=== PATIENT | female | born 1985 | race Two or more races ===

== ENCOUNTER 2021-10-11 18:13 | Emergency (ER) | payer SELFPAY ==
[~2021-10-11] VITALS: Ht 160 cm; Wt 66.0 kg
[2021-10-11 19:15] VITALS: BP 141/94
--- NOTE | 2021-10-11 19:43 | PHYS DOC ---
Past Medical History Past Surgical History: No Surgical History Adult General Chief Complaint Chief Complaint: NEURO SYMPTOMS/DEFICITS HPI HPI Patient is a 35 year old female presenting to the emergency department for evaluation of right arm numbness tingling and pain that has been going on for the past 2 weeks. Patient says that she feels the tingling and numbness in her upper arm and forearm and then it goes into all digits of her hand as well. She said that it was initially coming and going but since Monday it has been constant. 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 She denies having any medical problems or taking any medications on a regular basis. She is [place]- speaking only but brought her cousin to translate. Recommended [employer] language line sign language interpreter but she refused noting that she rather have her cousin interpret. She is in no acute distress with normal vital signs other than initial hypertension noted. Review of Systems Review of Systems Constitutional: Denies fever or chills [] Eyes: Denies change in visual acuity, redness, or eye pain [] HENT: Denies nasal congestion or sore throat [] Respiratory: Denies cough or shortness of breath [] Cardiovascular: No additional information not addressed in HPI [] GI: Denies abdominal pain, nausea, vomiting, bloody stools or diarrhea [] : Denies dysuria or hematuria [] Musculoskeletal: Denies back pain or joint pain [] Integument: Denies rash or skin lesions [] Neurologic: Denies headache, focal weakness. Positive right arm numbness and tingling. All other systems were reviewed and found to be within normal limits, except as documented in this note. Current Medications Current Medications Current Medications Medications (Trade) Dose Ordered Sig/[facility] Start Time Stop Time Status Last Admin Dose Admin Dexamethasone Sodium Phosphate (Decadron) 8 mg 1X ONCE 10/11/21 22:30 10/11/21 22:31 DC 10/11/21 22:14 8 MG Ketorolac Tromethamine (Toradol 15mg Vial) 15 mg 1X ONCE 10/11/21 22:30 10/11/21 22:31 DC 10/11/21 22:15 15 MG Allergies Allergies Allergies Coded Allergies Type Severity Reaction Last Updated Verified No Known Drug Allergies 10/11/21 No Physical Exam Physical Exam Constitutional: Well developed, well nourished, no acute distress, non-toxic appearance. [] HENT: Normocephalic, atraumatic, bilateral external ears normal, oropharynx moist, no oral exudates, nose normal. [] Eyes: PERRLA, EOMI, conjunctiva normal, no discharge. [] Neck: Normal range of motion, no tenderness, supple, no stridor. [] Cardiovascular:Heart rate regular rhythm, no murmur [] Lungs & Thorax: Bilateral breath sounds clear to auscultation [] Abdomen: Bowel sounds normal, soft, no tenderness, no masses, no pulsatile masses. [] Skin: Warm, dry, no erythema, no rash. [] Back: No tenderness, no CVA tenderness. [] Extremities: No tenderness, no cyanosis, no clubbing, ROM intact, no edema. 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 Subjective decrease sensation to palpation in the right forearm and all digits of her fingers on the volar and dorsal surface. Current Patient Data Vital Signs Vital Signs Date Time Temp Pulse Resp B/P (MAP) Pulse Ox O2 Delivery O2 Flow Rate FiO2 10/11/21 19:15 98.5 73 16 141/94 (110) 99 Room Air 98.5 Lab Values Laboratory Tests Test 10/11/21 21:41 10/11/21 22:30 10/11/21 22:33 White Blood Count 7.6 x10^3/uL (4.0-11.0) Red Blood Count 4.50 x10^6/uL (3.50-5.40) Hemoglobin 14.2 g/dL (12.0-15.5) Hematocrit 40.6 % (36.0-47.0) Mean Corpuscular Volume 90 fL (79-100) Mean Corpuscular Hemoglobin 32 pg (25-35) Mean Corpuscular Hemoglobin Concent 35 g/dL (31-37) Red Cell Distribution Width 12.5 % (11.5-14.5) Platelet Count 239 x10^3/uL (140-400) Neutrophils (%) (Auto) 60 % (31-73) Lymphocytes (%) (Auto) 29 % (24-48) Monocytes (%) (Auto) 6 % (0-9) Eosinophils (%) (Auto) 3 % (0-3) Basophils (%) (Auto) 1 % (0-3) Neutrophils # (Auto) 4.6 x10^3/uL (1.8-7.7) Lymphocytes # (Auto) 2.2 x10^3/uL (1.0-4.8) Monocytes # (Auto) 0.5 x10^3/uL (0.0-1.1) Eosinophils # (Auto) 0.3 x10^3/uL (0.0-0.7) Basophils # (Auto) 0.1 x10^3/uL (0.0-0.2) Sodium Level 140 mmol/L (136-145) Potassium Level 3.7 mmol/L (3.5-5.1) Chloride Level 106 mmol/L (98-107) Carbon Dioxide Level 28 mmol/L (21-32) Anion Gap 6 (6-14) Blood Urea Nitrogen 17 mg/dL (7-20) Creatinine 0.6 mg/dL (0.6-1.0) Estimated GFR (Cockcroft-Gault) 114.4 BUN/Creatinine Ratio 28 (6-20) H Glucose Level 123 mg/dL (70-99) H Calcium Level 9.3 mg/dL (8.5-10.1) Total Bilirubin 0.3 mg/dL (0.2-1.0) Aspartate Amino Transferase (AST) 19 U/L (15-37) Alanine Aminotransferase (ALT) 32 U/L (14-59) Alkaline Phosphatase 60 U/L (46-116) Total Protein 7.5 g/dL (6.4-8.2) Albumin 4.2 g/dL (3.4-5.0) Albumin/Globulin Ratio 1.3 (1.0-1.7) Thyroid Stimulating Hormone (TSH) 2.588 uIU/mL (0.358-3.74) Urine Collection Type Unknown Urine Color (Auto) Light yellow Urine Turbidity Hazy Urine pH (Auto) 6.5 (<5.0-8.0) Urine Specific Success 1.027 (1.000-1.030) Urine Protein (Auto) Negative mg/dL (Negative) Urine Glucose (Auto)(UA) Negative mg/dL (Negative) Urine Ketones (Auto) Negative mg/dL (Negative) Urine Blood (Auto) Negative (Negative) Urine Nitrite Negative (Negative) Urine Bilirubin (Auto) Negative (Negative) Urine Urobilinogen (Auto) Normal mg/dL (Normal) Urine Leukocyte Esterase (Auto) Negative (Negative) Urine RBC Occ /HPF (0-2) Urine WBC Occ /HPF (0-4) Urine Squamous Epithelial Cells Mod /LPF Urine Bacteria Few /HPF (0-FEW) Urine Mucus Slight /LPF POC Urine HCG, Qualitative Hcg negative (Negative) Laboratory Tests 10/11/21 21:41 Laboratory Tests 10/11/21 21:41 EKG EKG [] Radiology/Procedures Radiology/Procedures [] Course & Med Decision Making Course & Med Decision Making Peripheral nerve pathology is felt to be much more likely than central nerve pathology but I will check a CT of her head and cervical spine treat with Toradol and Decadron and reassess. Patient said that her numbness and tingling did improve significantly after medications in the emergency department. Her labs urinalysis and CT showed no acute pathology. I informed her that the next steps would be to get an MRI of her brain and cervical spine to further assess her numbness and tingling and rec ommended she be admitted to hospital to get this done but patient refused stating that her doctor sent her here to get CT scans and if negative she has an appointment to follow-up. Patient will be discharged at her request I will prescribe ibuprofen and prednisone for her as an outpatient told her to keep her follow-up appointments and to come back to emergency department sooner with worsening pain weakness numbness incontinence or other concerns. Patient aware and agreeable with plan and verbalized understanding of the above instructions. Dragon Disclaimer Dragon Disclaimer This electronic medical record was generated, in whole or in part, using a voice recognition dictation system. Departure Departure Impression: Primary Impression: Right arm numbness Disposition: HOME / SELF CARE / HOMELESS Condition: STABLE Patient Instructions: Paresthesia Scripts Prednisone (PREDNISONE) 50 Mg Tablet 1 TAB PO DAILY, #3 TAB Start 10/13 Prov: BALBIR THOMPSON DO 10/12/21 Ibuprofen (IBUPROFEN) 600 Mg Tablet 600 MG PO PRN Q6HRS PRN for INFLAMMATION for 7 Days, #28 TAB Prov: BALBIR THOMPSON DO 10/12/21 BALBIR THOMPSON DO October 11, 2021 19:43
[2021-10-11 21:48] LABS: BASO # 0.1 x10^3/uL (0.0-0.2); BASO % 1 % (0-3); EOS # 0.3 x10^3/uL (0.0-0.7); EOS % 3 % (0-3); HEMATOCRIT 40.6 % (36.0-47.0); HEMOGLOBIN 14.2 g/dL (12.0-15.5); LYMPH # 2.2 x10^3/uL (1.0-4.8); LYMPH % 29 % (24-48); MEAN CORPUSCULAR HEMOGLOBIN 32 pg (25-35); MEAN CORPUSCULAR HGB CONC 35 g/dL (31-37); MEAN CORPUSCULAR VOLUME 90 fL (79-100); MONO # 0.5 x10^3/uL (0.0-1.1); MONO % 6 % (0-9); NEUT # 4.6 x10^3/uL (1.8-7.7); NEUT % 60 % (31-73); PLATELET COUNT 239 x10^3/uL (140-400); RED CELL DISTRIBUTION WIDTH 12.5 % (11.5-14.5); WHITE BLOOD COUNT 7.6 x10^3/uL (4.0-11.0)
[2021-10-11 22:03] LABS: CALCIUM 9.3 mg/dL (8.5-10.1); CREATININE 0.6 mg/dL (0.6-1.0); GFR 114.4; POTASSIUM 3.7 mmol/L (3.5-5.1)
[2021-10-11 22:07] LABS: ALBUMIN 4.2 g/dL (3.4-5.0); ALBUMIN/GLOBULIN RATIO 1.3 (1.0-1.7); TOTAL BILIRUBIN 0.3 mg/dL (0.2-1.0); TOTAL PROTEIN 7.5 g/dL (6.4-8.2)
[2021-10-11] MEDS ORDERED: KETOROLAC 15 MG/ML VIAL. IVP ONE (22:30)
[2021-10-11] MEDS ORDERED: DEXAMETHASONE SOD PHOS 4 MG/ML VIAL IVP ONE (22:30)
[2021-10-11 22:46] LABS: BACTERIA,URINE FEW /HPF (0-FEW); RBC,URINE OCC /HPF (0-2); WBC,URINE OCC /HPF (0-4)
[2021-10-12] MEDS ORDERED: PRED50TA PO (00:13)
[2021-10-12] MEDS ORDERED: IBUP-1007 PO (00:13)
--- NOTE | 2021-10-12 12:23 | RAD ---
EXAM: CT head and cervical spine without contrast INDICATION: Right arm pain, numbness and tingling for 2 weeks COMPARISON: None TECHNIQUE: Axial CT imaging through the head and cervical spine without intravenous contrast. Sagitta l and coronal reformats were obtained. One or more of the following individualized dose reduction techniques were utilized for this examinat ion: 1. Automated exposure control 2. Adjustment of the mA and/or kV according to patient size 3. Use of iterative reconstruction technique. FINDINGS: CT head: The ventricles and sulci are normal. [place]-white matter differentiation is maintained. There is no in tracranial hemorrhage, acute infarct, or mass lesion. Basal cisterns are clear. The skull and scalp are intact. Mild mucosal thickening in the ethmoid air cells and maxillary sinuse s. Possible small retention cyst in the right maxillary sinus. Mastoid air cells are clear. Globes an d orbits are intact. CT cervical spine: No acute fracture. Alignment is normal. There is partial fusion across the C3-C4 disc space and fusio n of the C3-C4 facets on the right, likely congenital. Mild kyphosis centered at C4-C5. Disc spaces a re maintained. No bony canal or foraminal narrowing. Lung apices are clear. IMPRESSION: 1. No acute intracranial abnormality. 2. No acute osseous abnormality of the cervical spine. Electronically signed by: Manuela Desouza MD (10/11/2021 11:42 PM) [facility]
== END 2021-10-12 00:45 | disposition home or self-care (01) ==
LOC: ER 18:13 → EDBD 18:13 → ER 10-12 00:45
DX: R20.0 Anesthesia of skin (principal); R51.9 Headache, unspecified; G61.82 Multifocal motor neuropathy; M54.2 Cervicalgia
CPT/HCPCS: 36415; 70450; 72125; 80053; 81001; 81025; 84443; 85025; 96374; 96375; 99284; J1100; J1885